=== PATIENT | female | born 1985 | race Caucasian/White ===

== ENCOUNTER 2016-12-28 08:39 | Emergency (ER) | payer OTHER ==
[~2016-12-28] VITALS: Ht 172.7 cm; Wt 112.8 kg
[~2016-12-28 08:39] MED LIST: ASPIR 8181 M1 PO; BENADRYL25 MG PO; COLACE100 MG PO; DEPO-PROVER150 MG/ML IM; FEOSOL45 MG PO; FLEXERIL10 MG PO; IBUPROFEN800 MG PO; IRON325 MG PO; MACROBID100 MG PO; PERCOCET 5/31 TABLET PO; PRENATAL PO; PRENATAL TABLE1 EAC3 PO; TYLENOL EXTRA500 MG PO; TYLENOL WITH C1 EACH PO; ZOFRAN8 MG PO; [UNRECOGNIZED DRUG - OTHER] IM; [UNRECOGNIZED DRUG - OTHER] IM
[2016-12-28] MEDS ORDERED: TAMIFLU75 MG PO (09:08)
[2016-12-28 09:46] VITALS: BP 110/78
== END 2016-12-28 09:47 | disposition home or self-care (01) ==
LOC: EME 08:39
DX: M72.2 Plantar fascial fibromatosis (principal); B34.9 Viral infection, unspecified; R11.2 Nausea with vomiting, unspecified; R19.7 Diarrhea, unspecified; J02.9 Acute pharyngitis, unspecified
CPT/HCPCS: 99281; 99283

== ENCOUNTER 2017-01-18 09:51 | Emergency (ER) | payer OTHER ==
[~2017-01-18] VITALS: Ht 172.7 cm; Wt 111.1 kg
[~2017-01-18 09:51] MED LIST changes: +TAMIFLU75 MG PO
[2017-01-18] MEDS ORDERED: TRAMADOL HCL50 MG PO (11:25)
[2017-01-18] MEDS ORDERED: NAPROSYN500 MG PO (11:25)
[2017-01-18] MEDS ORDERED: ZOFRAN ODT4 MG PO (11:40)
[2017-01-18 11:46] VITALS: BP 126/71
== END 2017-01-18 11:47 | disposition home or self-care (01) ==
LOC: EME 09:51
DX: S93.401A Sprain of unspecified ligament of right ankle, initial encounter (principal); W10.1XXA Fall (on)(from) sidewalk curb, initial encounter; X50.1XXA Overexertion from prolonged static or awkward postures, initial encounter
CPT/HCPCS: 73610; 99281; 99284

== ENCOUNTER 2017-07-06 09:05 | Emergency (ER) | payer OTHER ==
[~2017-07-06] VITALS: Ht 172.7 cm; Wt 116.0 kg
[~2017-07-06 09:05] MED LIST changes: +NAPROSYN500 MG PO; +TRAMADOL HCL50 MG PO; +ZOFRAN ODT4 MG PO
[2017-07-06] MEDS ORDERED: NAPROSYN500 MG PO (10:17)
[2017-07-06 11:19] VITALS: BP 116/76
== END 2017-07-06 11:20 | disposition home or self-care (01) ==
LOC: EME 09:05
DX: M72.2 Plantar fascial fibromatosis (principal)
CPT/HCPCS: 73630; 99281; 99284

== ENCOUNTER 2017-11-04 12:40 | Emergency (ER) | payer OTHER ==
[~2017-11-04] VITALS: Ht 172.7 cm; Wt 117.2 kg
[2017-11-04] MEDS ORDERED: PEN-VEE K,VEET500 MG PO (15:00)
[2017-11-04 16:10] LABS: HEMATOCRIT 40.2 % (36.0-46.0); HEMOGLOBIN 13.8 G/DL (11.9-15.5); MCH 29.9 PG (29.0-34.0); MCHC 34.3 G/DL (30.0-36.0); PLATELET COUNT 292 K/uL (156-360); RBC DIS.WIDTH-CV 11.4 % (11.8-14.6); RBC DIS.WIDTH-SD 36.2 % (39-53); RED BLOOD COUNT 4.62 M/uL (3.80-5.20); WHITE BLOOD COUNT 7.6 K/uL (4.1-10.2)
[2017-11-04 16:19] LABS: CHLORIDE 107 mEq/L (99-109); POTASSIUM 3.9 mEq/L (3.7-5.4); SODIUM 138 mEq/L (136-147)
[2017-11-04 16:20] LABS: GLUCOSE 107 mg/dL (70-99)
[2017-11-04 16:24] LABS: CREATININE 0.8 mg/dL (0.6-1.3); GFR ESTIMATE (CALCULATED) > 59 mL/min/
[2017-11-04 16:25] LABS: UREA NITROGEN (BUN) 11 mg/dL (9-23)
[2017-11-04 16:32] LABS: TROP-I INTERPRETATION NEGATIVE; TROPONIN-I 0.01 ng/mL (0.0-0.30)
[2017-11-04 19:39] LABS: TROP-I INTERPRETATION NEGATIVE; TROPONIN-I 0.02 ng/mL (0.0-0.30)
[2017-11-04 20:12] VITALS: BP 123/81
[2017-11-04] MEDS ORDERED: ZITHROMAX500 MG PO (22:23)
== END 2017-11-04 20:12 | disposition home or self-care (01) ==
LOC: EME 12:40
PROVIDERS: Physician Assistant Medical
DX: R07.81 Pleurodynia (principal); R19.7 Diarrhea, unspecified; R91.8 Other nonspecific abnormal finding of lung field; Z87.442 Personal history of urinary calculi
CPT/HCPCS: 71046; 71275; 80048; 84484; 85027; 85379; 93005; J7030

== ENCOUNTER 2018-01-25 11:27 | Emergency (ER) | payer OTHER ==
[~2018-01-25] VITALS: Ht 172.7 cm; Wt 116.3 kg
[~2018-01-25 11:27] MED LIST changes: +PEN-VEE K,VEET500 MG PO; +ZITHROMAX500 MG PO
[2018-01-25] MEDS ORDERED: ULTRAM50 MG PO (15:09)
[2018-01-25] MEDS ORDERED: MOTRIN800 MG PO (15:09)
[2018-01-25 15:55] VITALS: BP 152/78
== END 2018-01-25 15:57 | disposition home or self-care (01) ==
LOC: EME 11:27
DX: M25.572 Pain in left ankle and joints of left foot (principal); Z98.890 Other specified postprocedural states
CPT/HCPCS: 93971; 99281; 99284

== ENCOUNTER 2018-01-31 08:33 | Emergency (ER) | payer OTHER ==
[~2018-01-31] VITALS: Ht 172.7 cm; Wt 113.8 kg
[~2018-01-31 08:33] MED LIST changes: +MOTRIN800 MG PO; +ULTRAM50 MG PO
[2018-01-31 09:30] LABS: BASOPHIL (%) 0.4 % (0-1); EOSINOPHIL (%) 0.4 % (0-5); HEMATOCRIT 40.8 % (36.0-46.0); HEMOGLOBIN 14.1 G/DL (11.9-15.5); IMMATURE GRANULOCYTE (%) 0.1 % (0.0-0.7); LYMPHOCYTE COUNT 0.6 K/uL (1.0-2.8); MCH 29.8 PG (29.0-34.0); MCHC 34.6 G/DL (30.0-36.0); MCV 86.3 FL (83-99); MONOCYTE (%) 3.1 % (3-12); MONOCYTE COUNT 0.2 K/uL (0-0.8); NEUTROPHIL COUNT 6.2 K/uL (1.8-6.4); PLATELET COUNT 270 K/uL (156-360); RBC DIS.WIDTH-CV 11.3 % (11.8-14.6); RBC DIS.WIDTH-SD 35.6 % (39-53); RED BLOOD COUNT 4.73 M/uL (3.80-5.20)
[2018-01-31 09:44] LABS: CHLORIDE 106 mEq/L (99-109); POTASSIUM 4.5 mEq/L (3.7-5.4); SODIUM 137 mEq/L (136-147)
[2018-01-31 09:45] LABS: GLUCOSE 110 mg/dL (70-99)
[2018-01-31 09:49] LABS: CREATININE 0.8 mg/dL (0.6-1.3); GFR ESTIMATE (CALCULATED) > 59 mL/min/
[2018-01-31 09:50] LABS: UREA NITROGEN (BUN) 11 mg/dL (9-23)
[2018-01-31] MEDS ORDERED: ZOFRAN4 MG PO (10:46)
[2018-01-31] MEDS ORDERED: IMODIUM A-D2 M2 PO (10:46)
[2018-01-31] MEDS ORDERED: BENTYL20 MG PO (10:46)
[2018-01-31 10:58] VITALS: BP 121/62
== END 2018-01-31 11:25 | disposition home or self-care (01) ==
LOC: EME 08:33
PROVIDERS: Emergency Medicine
DX: K52.9 Noninfective gastroenteritis and colitis, unspecified (principal); J45.909 Unspecified asthma, uncomplicated; I10 Essential (primary) hypertension; Z87.442 Personal history of urinary calculi; Z90.49 Acquired absence of other specified parts of digestive tract
CPT/HCPCS: 80048; 85025; 99281; 99285; J1885; J2405; J7030

== ENCOUNTER 2018-03-06 09:45 | Emergency (ER) | payer OTHER ==
[~2018-03-06] VITALS: Ht 172.7 cm; Wt 116.8 kg
[~2018-03-06 09:45] MED LIST changes: +BENTYL20 MG PO; +IMODIUM A-D2 M2 PO; +ZOFRAN4 MG PO
[2018-03-06 10:37] LABS: HEMATOCRIT 40.7 % (36.0-46.0); HEMOGLOBIN 14.1 G/DL (11.9-15.5); MCHC 34.6 G/DL (30.0-36.0); MCV 86.6 FL (83-99); PLATELET COUNT 235 K/uL (156-360); RBC DIS.WIDTH-CV 11.3 % (11.8-14.6); RBC DIS.WIDTH-SD 35.9 % (39-53); WHITE BLOOD COUNT 6.4 K/uL (4.1-10.2)
[2018-03-06 10:49] LABS: CHLORIDE 103 mEq/L (99-109); SODIUM 135 mEq/L (136-147)
[2018-03-06 10:50] LABS: GLUCOSE 103 mg/dL (70-99)
[2018-03-06 10:54] LABS: CREATININE 0.8 mg/dL (0.6-1.3); GFR ESTIMATE (CALCULATED) > 59 mL/min/
[2018-03-06 10:55] LABS: UREA NITROGEN (BUN) 9 mg/dL (9-23)
[2018-03-06 11:24] VITALS: BP 139/79
== END 2018-03-06 11:28 | disposition home or self-care (01) ==
LOC: EME 09:45
PROVIDERS: Physician Assistant
DX: G43.909 Migraine, unspecified, not intractable, without status migrainosus (principal); Z98.890 Other specified postprocedural states; I10 Essential (primary) hypertension; J45.909 Unspecified asthma, uncomplicated; Z86.69 Personal history of other diseases of the nervous system and sense organs; Z87.442 Personal history of urinary calculi; Z90.49 Acquired absence of other specified parts of digestive tract
CPT/HCPCS: 73610; 80048; 85027; 99281; 99284

== ENCOUNTER 2018-05-28 09:40 | Emergency (ER) | payer OTHER ==
[~2018-05-28] VITALS: Ht 172.7 cm; Wt 116.5 kg
[2018-05-28 10:27] LABS: BASOPHIL (%) 0.4 % (0-1); EOSINOPHIL (%) 2.7 % (0-5); EOSINOPHIL COUNT 0.1 K/uL (0-0.3); HEMATOCRIT 40.6 % (36.0-46.0); HEMOGLOBIN 13.9 G/DL (11.9-15.5); IMMATURE GRANULOCYTE (%) 0.4 % (0.0-0.7); LYMPHOCYTE (%) 21.1 % (15-42); LYMPHOCYTE COUNT 1.1 K/uL (1.0-2.8); MCH 29.8 PG (29.0-34.0); MCHC 34.2 G/DL (30.0-36.0); MCV 86.9 FL (83-99); MONOCYTE (%) 6.4 % (3-12); MONOCYTE COUNT 0.3 K/uL (0-0.8); NEUTROPHIL COUNT 3.5 K/uL (1.8-6.4); PLATELET COUNT 256 K/uL (156-360); RBC DIS.WIDTH-CV 11.2 % (11.8-14.6); RBC DIS.WIDTH-SD 35.6 % (39-53); RED BLOOD COUNT 4.67 M/uL (3.80-5.20); WHITE BLOOD COUNT 5.1 K/uL (4.1-10.2)
[2018-05-28 10:35] LABS: ALBUMIN 4.2 g/dL (3.2-4.8)
[2018-05-28 10:36] LABS: CHLORIDE 104 mEq/L (99-109); POTASSIUM 4.7 mEq/L (3.7-5.4); SODIUM 137 mEq/L (136-147)
[2018-05-28 10:38] LABS: GLUCOSE 103 mg/dL (70-99); TOTAL PROTEIN 7.2 g/dL (6.4-8.3)
[2018-05-28 10:40] LABS: TOTAL BILIRUBIN 0.8 mg/dL (0.0-1.0)
[2018-05-28 10:41] LABS: ALKALINE PHOSPHATASE 60 IU/L (3-129)
[2018-05-28 10:42] LABS: CREATININE 0.8 mg/dL (0.6-1.3); GFR ESTIMATE (CALCULATED) > 59 mL/min/
[2018-05-28 10:43] LABS: AST (GOT) 18 IU/L (2-34); UREA NITROGEN (BUN) 10 mg/dL (9-23)
[2018-05-28 10:44] LABS: ALT (GPT) 18 IU/L (3-49)
[2018-05-28 10:52] LABS: QUANTITATIVE HCG < 4.0 MIU/ML
[2018-05-28 12:45] LABS: APPEARANCE SL.HAZY ((CLEAR)); BILIRUBIN NEGATIVE; BLOOD SMALL; COLOR YELLOW ((YELLOW)); GLUCOSE (STRIP) NEGATIVE; KETONES NEGATIVE; LEUKOCYTES NEGATIVE; NITRITE NEGATIVE; PROTEIN (STRIP) NEGATIVE; SPECIFIC GRAVITY 1.008 (1.000-1.030); UROBILINOGEN 0.2 MG/DL (0.2-1.0)
[2018-05-28 13:01] LABS: BACTERIA 1+ /HPF; EPITHELIAL CELLS 3+ /HPF; MUCUS TRACE /LPF; RED BLOOD CELLS 0-5 /HPF (0-5); UCUL ADDED? NO; WHITE BLOOD CELLS 0-5 /HPF (0-5)
[2018-05-28 16:04] LABS: APPEARANCE CLEAR, COLORLESS; CSF EOSINOPHILS 0 % (0-25); CSF TUBE NUMBER TUBE #4; POLYNUCLEAR WBC'S 0 % (0-3); RED CELL COUNT 0 /MM^3 (0-1); WHITE CELL COUNT 0 /MM^3 (0-5)
[2018-05-28 16:05] LABS: MONONUCLEAR WBC'S 0 % (50-90)
[2018-05-28 16:13] LABS: CSF PROTEIN 15 mg/dL (15-45)
[2018-05-28 16:18] LABS: GLUCOSE, CSF 57 mg/dL (40-80)
[2018-05-28] MEDS ORDERED: FLEXERIL10 MG PO (17:09)
[2018-05-28 17:50] VITALS: BP 114/67
== END 2018-05-28 17:54 | disposition home or self-care (01) ==
LOC: EME 09:40
PROVIDERS: Emergency Medicine
PROC: 009U3ZX Drainage of Spinal Canal, Percutaneous Approach, Diagnostic (ICD-10-PCS; principal; 2018-05-28)
DX: R51 Headache (principal); R11.10 Vomiting, unspecified; Z87.442 Personal history of urinary calculi
CPT/HCPCS: 70450; 80053; 81003; 82945; 84157; 84702; 85025; 87070; 87205; 89051; 99281; 99285; J1200; J1885; J2405; J2765; J7040